=== PATIENT | female | born 1990 | race Caucasian/White ===

== ENCOUNTER 2018-07-27 20:51 | Emergency (ER) | END 2018-07-28 01:26 | disposition home or self-care (01) ==

== ENCOUNTER 2018-09-10 10:10 | Day surgery (SDC) | END 2018-09-10 18:13 | disposition home or self-care (01) ==

== ENCOUNTER 2018-11-30 16:15 | Inpatient (IN) | payer OTHER ==
[~2018-11-30] VITALS: Ht 167.6 cm; Wt 77.0 kg
[2018-11-30] MEDS ORDERED: ONDANSETRON (ODT) 4 MG TAB ODT STA (22:07)
--- NOTE | 2018-11-30 22:07 | ERD ---
ER Documentation Chief Complaint Chief Complaint EPIGASTRIC PAIN WITH VOMITING X1HR [employer]ILY [employer] [place] HPI This is a 28-year-old female presents emergency department with complaints of epigastric pain with vomiting and hour prior to arrival here to emergency department. Patient stated that her epigastric pain started around 3 PM after eating chicken at around 2 PM. Added that she had a cholecystectomy last September 2018. [facility]. LMP: Unknown. . Denies headache, head injury, loss of consciousness, dizziness, neck pain, neck stiffness, throat pain, difficulty swallowing, difficulty breathing lying flat, shoulder pain, chest pain, back pain,constipation, diarrhea, urinary symptoms, or possibility being , loss of bowel and bladder control, trauma, injury, falls, difficulty walking due to pain, numbness or tingling sensation, calf pain, recent travel, recent major surgery in the last 3 weeks, calf pain, recent long travel, recent exposure to any illness, recent antibiotic use in the last 3 months, fever, chills, seizures. Past medical history: Surgical history: Cholecystectomy last September 2018. Social: Denies smoking, use of alcoholic beverages, use of illegal drugs. ROS All systems reviewed and are negative except as per history of present illness. Medications Home Meds No Active Prescriptions or Reported Meds Allergies Allergies: Coded Allergies: Penicillins (Verified Allergy, Intermediate, RASH, N/V, DIZZINES, 09/10/18) PMhx/Soc History of Surgery: No Anesthesia Reaction: No Hx Neurological Disorder: No Hx Respiratory Disorders: No Hx Cardiac Disorders: No Hx Psychiatric Problems: No Hx Miscellaneous Medical Probl: No Hx Alcohol Use: Yes (SOCIALLY) Hx Substance Use: No Hx Tobacco Use: No Smoking Status: Current every day smoker Physical Exam Vitals Vital Signs Date Temp Pulse Resp B/P (MAP) Pulse Ox O2 O2 Flow FiO2 Time Delivery Rate 12/01/18 98.0 56 16 106/60 100 Room Air 02:37 (75) 11/30/18 98.4 72 20 136/65 99 16:19 (88) Physical Exam Const: No acute distress Head: Atraumatic Eyes: Normal Conjunctiva ENT: Normal External Ears, Nose and Mouth. Neck: Full range of motion. No meningismus. Resp: Clear to auscultation bilaterally Cardio: Regular rate and rhythm, no murmurs Abd: Soft, non tender, non distended. Normal bowel sounds. Has right upper abdominal tenderness to light and deep palpation. Negative Dago sign (heel jar test). Negative psoas sign. Negative Rovsing sign. No CVA tenderness. Lap sites are intact. No signs of dizziness. Skin: No petechiae or rashes Back: No midline or flank tenderness Ext: No cyanosis, or edema Neur: Awake and alert. No neurological deficit. Psych: Normal Mood and Affect Result Diagram: 11/30/18222111/30/182221 Results 24 hrs Laboratory Tests Test 11/30/18 22:22 11/30/18 22:47 White Blood Count 7.9 10^3/ul Red Blood Count 4.73 10^6/ul Hemoglobin 13.0 g/dl Hematocrit 41.2 % Mean Corpuscular Volume 87.1 fl Mean Corpuscular Hemoglobin 27.5 pg Mean Corpuscular Hemoglobin Concent 31.6 g/dl Red Cell Distribution Width 14.6 % Platelet Count 187 10^3/UL Mean Platelet Volume 10.1 fl Immature Granulocytes % 0.400 % Neutrophils % 69.4 % Lymphocytes % 21.0 % Monocytes % 8.6 % Eosinophils % 0.3 % Basophils % 0.3 % Nucleated Red Blood Cells % 0.0 /100WBC Immature Granulocytes # 0.030 10^3/ul Neutrophils # 5.5 10^3/ul Lymphocytes # 1.7 10^3/ul Monocytes # 0.7 10^3/ul Eosinophils # 0.0 10^3/ul Basophils # 0.0 10^3/ul Nucleated Red Blood Cells # 0.0 10^3/ul Urine Color NAA Urine Clarity CLOUDY Urine pH 5.0 Urine Specific [place] 1.027 Urine Ketones TRACE mg/dL Urine Nitrite NEGATIVE mg/dL Urine Bilirubin NEGATIVE mg/dL Urine Urobilinogen 2+ mg/dL Urine Leukocyte Esterase 2+ Holden/ul Urine Microscopic RBC 4 /HPF Urine Microscopic WBC 2 /HPF Urine Squamous Epithelial Cells FEW /HPF Urine Mucus FEW /HPF Urine Hemoglobin NEGATIVE mg/dL Urine Glucose NEGATIVE mg/dL Urine Total Protein NEGATIVE mg/dl Sodium Level 144 mmol/L Potassium Level 3.9 mmol/L Chloride Level 106 mmol/L Carbon Dioxide Level 27 mmol/L Anion Gap 11 Blood Urea Nitrogen 14 mg/dl Creatinine 0.57 mg/dl Est Glomerular Filtrat Rate mL/min > 60 mL/min Glucose Level 99 mg/dl Calcium Level 10.3 mg/dl Total Bilirubin 0.7 mg/dl Direct Bilirubin 0.00 mg/dl Indirect Bilirubin 0.7 mg/dl Aspartate Amino Transf (AST/SGOT) 604 IU/L Alanine Aminotransferase (ALT/SGPT) 326 IU/L Alkaline Phosphatase 154 IU/L Total Protein 8.4 g/dl Albumin 4.8 g/dl Globulin 3.60 g/dl Albumin/Globulin Ratio 1.33 Amylase Level 197 U/L Lipase 1233 U/L POC Beta HCG, Qualitative NEGATIVE Current Medications Medications Dose Sig/Osiris Start Time Status Last (Trade) Ordered Route PRN Stop Time Admin Dose Reason Admin Ondansetron 4 mg ONCE STAT 11/30/18 DC 12/01/18 HCl (Zofran ODT 22:07 00:20 Odt) 11/30/18 22:10 40 ml ONCE ONCE 11/30/18 DC 12/01/18 Miscellaneous PO 22:30 00:20 Medication 11/30/18 22:31 (Gi Cocktail (2)) Sodium 1,000 ml @ Q1H ONCE 12/01/18 DC 12/01/18 Chloride 1,000 mls/hr IV 01:00 01:07 12/01/18 01:59 Morphine 4 mg ONCE STAT 12/01/18 DC Sulfate IV 00:35 (morphine) 12/01/18 00:36 Ondansetron 4 mg ONCE STAT 12/01/18 DC 12/01/18 HCl (Zofran IV 00:35 01:10 Inj) 12/01/18 00:36 Ondansetron 4 mg BRIDGE ORDER 12/01/18 HCl (Zofran PRN IV 02:30 Inj) NAUSEA/VOMITI 12/02/18 02:29 NG 650 mg ER BRIDGE 12/01/18 Acetaminophen PRN PO 02:30 (Tylenol .MILD PAIN 12/02/18 02:29 Tab) 1-3 OR TEMP Sodium 1,000 ml @ Q5H IV 12/01/18 Chloride 200 mls/hr 02:16 IV Flush 3 ml PER 12/01/18 (NS 3 ml) PROTOCOL IV 02:30 Ondansetron 4 mg Q6H PRN 12/01/18 HCl (Zofran IV 02:30 Inj) NAUSEA/VOMITI NG 650 mg Q6H PRN 12/01/18 Acetaminophen PO .PAIN 1-3 02:30 (Tylenol OR TEMP Tab) 0.5 mg Q4H PRN 12/01/18 Hydromorphone IV .SEVERE 02:30 HCl PAIN 7-10 (Dilaudid) Docusate 100 mg Q12H PRN 12/01/18 Sodium PO 02:30 (Colace) .CONSTIPATION Bisacodyl 5 mg DAILY PRN 12/01/18 (Dulcolax) PO 02:30 .CONSTIPATION 200 ml @ Q12 IVPB 12/01/18 Ciprofloxacin 200 mls/hr 02:31 / Dextrose Procedures/MDM Diagnostic tests: POC urine : Negative. Urinalysis: UTI. Culture urine: Sent. Blood works: Elevated lipase. Elevated liver enzymes. Ultrasound of the gallbladder: IMPRESSION: 1. Surgically absent gallbladder. No evidence of common bile duct obstruction. 2. Sonographically unremarkable liver. 3. Sonographically unremarkable right kidney. Treatment: Zofran ODT. GI cocktail. Saline lock. Normal saline IV bolus. Morphine IV. Zofran IV. Ceftriaxone IV. Re-evaluation: Minimal pain. This case was discussed with my supervising physician, Dr. Bharat Nice who agreed to admit the patient and to continue care. Departure Diagnosis: Primary Impression: Abdominal pain Additional Impressions: Pancreatitis Elevated liver enzymes UTI (urinary tract infection) Condition: BOUBACAR Boyd Nov 30, 2018 22:07
[2018-11-30] MEDS ORDERED: LIDOCAINE/MYLANTA 40 ML BTL PO ONE (22:30)
[2018-12-01] MEDS ORDERED: morphine 4 MG/ML VIAL IV STA (00:35)
[2018-12-01] MEDS ORDERED: ONDANSETRON 4 MG INJ IV STA (00:35)
[2018-12-01] MEDS ORDERED: SOD CHLORIDE 0.9% 1,000 ML IV ONE (01:00)
--- NOTE | 2018-12-01 02:23 | QN ---
Documentation Comment Consultation note Subjective: The patient was evaluated by the PA under my direct supervision. Briefly, this is a 28-year-old female with reported occasional alcohol use who is presenting with epigastric pain, nausea and vomiting. Family history: As indicated on the initial history and physical of this ER visit Objective: Vital signs reviewed Const: No apparent distress, well-developed, well-nourished Head: Normocephalic, Atraumatic Eyes: Normal Conjunctiva. ENT: Normal External Ears, Nose and Mouth. Neck: No meningismus. Resp: Symmetric chest wall urena, no audible wheezes Cardio: Regular rate Abd: Non distended Skin: No petechiae or rashes Back: Deferred Ext: No cyanosis, or edema Neur: Awake and alert. No facial droop. Normal strength and sensation. Assessment: Pancreatitis MDM The patient's presentation warrants further investigation. Previous medical records, if available, were reviewed. LABS The patient's laboratory testing was obtained and reviewed. No emergent treatment was required unless described below. CBC: No E/o of systemic infection or severe anemia or thrombocytopenia CMP: No E/o severe acidosis or alkalosis or renal failure or diabetic ketoacidosis. Transaminitis in a pattern of alcohol abuse. Lipase: E/o pancreatitis Urine: No E/o acute infection or hematuria IMAGING Imaging and Radiology interpretation reviewed. Ultrasound abdomen IMPRESSION: 1. Surgically absent gallbladder. No evidence of common bile duct obstruction. 2. Sonographically unremarkable liver. 3. Sonographically unremarkable right kidney. Electronically viewed and signed by Physician Matthew on 11/30/2018 23:42 TREATMENT/DISPOSITION The patient's evaluation is consistent with pancreatitis, which appears to be related to alcohol abuse. The patient was given IV fluids, morphine and Zofran with some improvement of her symptoms. At this time, I feel that the patient requires admission for further evaluation and management. The patient will be admitted to panel in accordance with the patient's insurance. The patient was accepted by Dr. Hernandez at 0220 at 12/01/2018. Disclaimer: Inadvertent spelling and grammatical errors are likely due to EHR/dictation software use and do not reflect on the overall quality of patient care. Note that the electronic time recorded on this note does not necessarily reflect the actual time of the patient encounter. ANGELA RO MD Dec 01, 2018 02:23
[2018-12-01] MEDS ORDERED: NACL 0.9% 3 ML SYG IV SCH (02:30)
[2018-12-01] MEDS ORDERED: BISACODYL (EC) 5 MG TAB PO PRN (02:30)
[2018-12-01] MEDS ORDERED: ACETAMINOPHEN 325 MG TAB PO PRN (02:30)
[2018-12-01] MEDS ORDERED: DOCUSATE SODIUM 100 MG CAP PO PRN (02:30)
[2018-12-01] MEDS ORDERED: HYDROmorphONE 0.5 MG/0.5 ML SYG IV PRN (02:30)
[2018-12-01] MEDS ORDERED: ONDANSETRON 4 MG INJ IV PRN ×2 (02:30)
[2018-12-01 02:49] VITALS: BP 103/57; PULSE 59; RESP 18
[2018-12-01 03:10] VITALS: Ht 167.6 cm; Wt 77.0 kg
[2018-12-01] MEDS: ACETAMINOPHEN 325 MG TAB PO PRN ×2 (03:30→21:12)
[2018-12-01] MEDS: SOD CHLORIDE 0.9% 1,000 ML IV SCH ×5 (03:31→18:51)
[2018-12-01] MEDS: CIPROFLOXACIN 400MG/D5W 200 ML IVPB SCH ×3 (03:35→21:10)
--- NOTE | 2018-12-01 07:13 | HP ---
Date/Time of Note Date/Time of Note DATE: 12/01/18 TIME: 07:07 Assessment/Plan VTE Prophylaxis SCD applied (from Nsg): Yes Pharmacological prophylaxis: NA/contraindicated Pharm contraindication: low risk/ambulating Lines/Catheters IV Catheter Type (from Nrsg): Peripheral IV Urinary Cath still in place: No Assessment/Plan Hospital Course This is a 28-year-old female being admitted to the [facility] floor for: #1 acute pancreatitis: Possibly secondary to EtOH use. Patient did have her gallbladder removed in September 2018. Right upper quadrant ultrasound does not show any signs of common bile duct elevation. Patient does have elevated LFTs but without any obstructive pattern. At the current time will provide aggressive IV fluid hydration with normal saline. Pain control. #2 transaminitis: Patient does have a 2-1 AST to ALT ratio likely consistent with alcohol use. We will also check an acetaminophen level. Will check hepatitis panel. Continue to monitor closely. Will limit acetaminophen intake to 2 g daily. #3 urinary tract infection: Await urine culture results, Cipro IV at the current time. #4 DVT GI prophylaxis: SCDs, no GI prophylaxis indicated Further treatment strategy will be implemented as per the clinical course. Result Diagram: 12/01/18 0510 11/30/18 2222 Results 24hrs Laboratory Tests Test 11/30/18 22:22 11/30/18 22:47 12/01/18 05:10 White Blood Count 7.9 4.4 #L Red Blood Count 4.73 3.98 L Hemoglobin 13.0 11.1 L Hematocrit 41.2 35.1 L Mean Corpuscular Volume 87.1 88.2 Mean Corpuscular Hemoglobin 27.5 L 27.9 L Mean Corpuscular Hemoglobin Concent 31.6 L 31.6 L Red Cell Distribution Width 14.6 H 14.7 H Platelet Count 187 144 # Mean Platelet Volume 10.1 11.2 H Immature Granulocytes % 0.400 0.200 Neutrophils % 69.4 58.2 Lymphocytes % 21.0 28.2 Monocytes % 8.6 12.1 H Eosinophils % 0.3 1.1 Basophils % 0.3 0.2 Nucleated Red Blood Cells % 0.0 0.0 Immature Granulocytes # 0.030 0.010 Neutrophils # 5.5 2.6 Lymphocytes # 1.7 1.2 Monocytes # 0.7 0.5 Eosinophils # 0.0 0.1 Basophils # 0.0 0.0 Nucleated Red Blood Cells # 0.0 0.0 Urine Color ANA Urine Clarity CLOUDY A Urine pH 5.0 Urine Specific [place] 1.027 Urine Ketones TRACE A Urine Nitrite NEGATIVE Urine Bilirubin NEGATIVE Urine Urobilinogen 2+ H Urine Leukocyte Esterase 2+ H Urine Microscopic RBC 4 Urine Microscopic WBC 2 Urine Squamous Epithelial Cells FEW Urine Mucus FEW A Urine Hemoglobin NEGATIVE Urine Glucose NEGATIVE Urine Total Protein NEGATIVE Sodium Level 144 Potassium Level 3.9 Chloride Level 106 Carbon Dioxide Level 27 Anion Gap 11 Blood Urea Nitrogen 14 Creatinine 0.57 Est Glomerular Filtrat Rate mL/min > 60 Glucose Level 99 Calcium Level 10.3 H Total Bilirubin 0.7 Direct Bilirubin 0.00 Indirect Bilirubin 0.7 Aspartate Amino Transf (AST/SGOT) 604 H Alanine Aminotransferase (ALT/SGPT) 326 H Alkaline Phosphatase 154 H Total Protein 8.4 H Albumin 4.8 Globulin 3.60 H Albumin/Globulin Ratio 1.33 Amylase Level 197 H Lipase 1233 H POC Beta HCG, Qualitative NEGATIVE HPI/ROS Admit Date/Time Admit Date/Time Dec 01, 2018 at 02:18 Hx of Present Illness Chief complaint: Abdominal pain and vomiting times 1 day This is a 28-year-old female who presented to the emergency department complaining of epigastric pain with vomiting approximately 1 hour prior to arrival. Patient reports that the epigastric pain started approximately 3 PM after she had eaten food at approximately 2 PM. She did go to a friend's alliance party recently and did have a lot to drink there as well. She had a cholecystectomy performed in September 2018. She also does report episodes of diarrhea as well. Denies any fevers. Allergies: Penicillin Medications: None ROS Const: As per HPI Eyes : No pain discharge or redness or change in visual acuity ENT: No pain, sore throat, congestion, congestion, dysphagia or discharge Respiratory: No shortness of breath, cough, sputum, wheezing, or pleuritic pain Cardiovascular: No chest pain, palpitation, PND, or edema GI : As per HPI Genitourinary: No dysuria, hematuria, flank pain , discharge or CVA tenderness Musculoskeletal: No joint pain, back pain, neck pain, restricted range of motion in neck or joints Skin: No rash, bruising or hives Neuro: No headache, dizziness, syncope, seizure, focal weakness Endocrine: No polyuria, polydipsia, temperature intolerance Psych: No hallucination, depression, anxiety or suicidal ideation PMH/Family/Social Past Medical History Medical History: no pertinent history Medications Current Medications Ondansetron HCl (Zofran Inj) 4 mg BRIDGE ORDER PRN IV NAUSEA/VOMITING; Start 12/01/18 at 02:30; Stop 12/02/18 at 02:29 Acetaminophen (Tylenol Tab) 650 mg ER BRIDGE PRN PO .MILD PAIN 1-3 OR TEMP; Start 12/01/18 at 02:30; Stop 12/02/18 at 02:29 Sodium Chloride 1,000 ml @ 200 mls/hr Q5H IV Last administered on 12/01/18at 03:31; Admin Dose 200 MLS/HR; Start 12/01/18 at 02:16 IV Flush (NS 3 ml) 3 ml PER PROTOCOL IV ; Start 12/01/18 at 02:30 Ondansetron HCl (Zofran Inj) 4 mg Q6H PRN IV NAUSEA/VOMITING Last administered on 12/01/18at 03:33; Admin Dose 4 MG; Start 12/01/18 at 02:30 Acetaminophen (Tylenol Tab) 650 mg Q6H PRN PO .PAIN 1-3 OR TEMP Last administered on 12/01/18at 03:30; Admin Dose 650 MG; Start 12/01/18 at 02:30 Hydromorphone HCl (Dilaudid) 0.5 mg Q4H PRN IV .SEVERE PAIN 7-10; Start 12/01/18 at 02:30 Docusate Sodium (Colace) 100 mg Q12H PRN PO .CONSTIPATION; Start 12/01/18 at 02:30 Bisacodyl (Dulcolax) 5 mg DAILY PRN PO .CONSTIPATION; Start 12/01/18 at 02:30 Ciprofloxacin/ Dextrose 200 ml @ 200 mls/hr Q12 IVPB Last administered on 12/01/18at 03:35; Admin Dose 200 MLS/HR; Start 12/01/18 at 02:31 Coded Allergies: Penicillins (Verified Allergy, Intermediate, RASH, N/V, DIZZINES, 09/10/18) Past Surgical History Cholecystectomy in September 2018 Family History Significant Family History: no pertinent family hx Social History Recent episode of heavy drinking at a alliance party Alcohol Use: occasionally Smoking Status: Never smoker Drug Use: none Exam/Review of Systems Vital Signs Vitals Vital Signs Date Temp Pulse Resp B/P (MAP) Pulse Ox O2 O2 Flow FiO2 Time Delivery Rate 12/01/18 97.9 59 18 103/57 100 02:49 (72) 12/01/18 Room Air 02:37 Intake and Output 11/30/18 11/30/18 12/01/18 1515:00 23:00 07:00 IntakeIntake Total 620 ml BalanceBalance 620 ml Exam Exam General: Patient is a pleasant female currently lying in bed in mild distress from epigastric pain HEENT: Atraumatic, normocephalic. The pupils are equal, round and reactive. Extraocular motor are intact Neck: Supple with full range of motion. No rigidity or meningismus Chest: Nontender Lungs: Clear to auscultation bilaterally no crackles rales or wheezing Heart: Normal S1-S2, Regular rhythm and rate. No murmur, S3, or S4 Abdomen: Soft , tender to palpation at the epigastric region nondistended , bowel sounds are present. No guarding no rebound tenderness , No masses or organomegaly. No costovertebral temporal angle mass Extremities: Normal to inspection, no edema no cyanosis Neurologic: Normal mental status, speech normal, cranial nerves II through XII are intact, motor and sensory are intact, no focal weakness Additional Comments PROCEDURE: US gallbladder . CLINICAL INDICATION: Postprandial upper abdominal pain TECHNIQUE: Multiple real-time images were acquired of the patient's abdomen utilizing a high resolution transducer. COMPARISON: 07/27/2018 FINDINGS: The hepatic parenchyma is unremarkable where visualized. Size is normal. No abnormal focal masses or fluid collections are identified. The gallbladder is surgically absent having been removed subsequent to the previous ultrasound. The common bile duct measures 4 mm in maximal dimension. The pancreas, where visible, appears unremarkable. Were visible, the right kidney appears unremarkable and measures 11.1 cm in length. No free fluid is identified. The abdominal aorta and inferior vena cava appear unremarkable. IMPRESSION: 1. Surgically absent gallbladder. No evidence of common bile duct obstruction. 2. Sonographically unremarkable liver. 3. Sonographically unremarkable right kidney. RPTAT:AAJJ Garyly Alexsander, Physician Date Time Electronically viewed and signed by Paul Beltre, Physician on 11/30/2018 23:42 GW/ CC: BOUBACAR EDWARDS [id number] RIMA REYES Dec 01, 2018 07:13
[2018-12-01 08:44] VITALS: BP 120/66; PULSE 57; RESP 16
[2018-12-01 13:42] VITALS: BP 109/59; PULSE 63; RESP 18
--- NOTE | 2018-12-01 16:54 | PN ---
Date/Time of Note Date/Time of Note DATE: 12/01/18 TIME: 16:53 Assessment/Plan VTE Prophylaxis Risk score (from Ns)>0 risk: 1 SCD applied (from Ns): Yes Pharmacological prophylaxis: NA/contraindicated Pharm contraindication: low risk/ambulating Lines/Catheters IV Catheter Type (from [facility]): Peripheral IV Urinary Cath still in place: No Assessment/Plan Hospital Course SUBJECTIVE: Denies any abdominal pain. OBJECTIVE: Physical Exam General: Adequately build 28 year-old female lying in bed in no apparent distress. HEENT: Normocephalic, atraumatic. Eyes: Anicteric sclerae, conjunctivae clear. ENT: Nasal septum midline, oral mucosa moist. Neck supple, no JVD noticed. Respiratory: Bilaterally clear breath sounds. No use of accessory muscles of respiration. No adventitious breath sounds. Cardiovascular: S1, S2 heard. No murmurs or gallops. Abdomen: Soft, nontender, and nondistended. Bowel sounds positive in all 4 quadrants. Genitourinary: Deferred. Extremities: No cyanosis, no clubbing, no edema. Peripheral pulses palpable. Neurologic: Cranial nerves II through XII grossly intact. The patient is awake, alert, and oriented. Skin: Normal skin turgor. No skin rashes. Labs & Vitals per chart ASSESSMENT & PLAN 28-year-old female with past medical history of cholelithiasis status post cholecystectomy who came to the emergency room with chief complaint of abdominal pain and vomiting times 1 day. The patient has been recently drinking alcohol at a constitution party. In the emergency room, the patient was noticed to have evidence of pancreatitis with a lipase level of 1233. The patient's gallbladder ultrasound showed no evidence of common bile duct obstruction and surgically absent gallbladder. The patient was admitted to inpatient setting for further treatment and evaluation. 1. Acute pancreatitis -Most probably alcohol induced -Patient is status post cholecystectomy. The patient's MRCP negative for any choledocholithiasis -No evidence of any hypertriglyceridemia on fasting lipid panel. -Continue n.p.o. -Continue pain control. -Continue IV fluids. 2. Positive urinalysis -On empiric antimicrobials for any underlying urinary tract infection. -Await final cultures. 3. Alcohol use. -Cessation advised. -The patient relates that she is not a heavy alcohol user and was willing to remain sober. 4. Transaminitis with hyperbilirubinemia. -Most probably secondary to #1. 5. Fluids, electrolytes, and nutrition. -N.p.o. except for medications -IV fluids. 6. DVT prophylaxis. -Bilateral SCDs. 7. Plan. -Continue pain control. -Continue IV hydration. -Trend pancreatic enzyme levels. The patient was seen in collaboration with Dr. Ceja. Result Diagram: 12/01/18 0510 12/01/18 0510 Results 24hrs Laboratory Tests Test 11/30/18 22:22 11/30/18 22:47 12/01/18 05:10 12/01/18 07:33 White Blood Count 7.9 4.4 #L Red Blood Count 4.73 3.98 L Hemoglobin 13.0 11.1 L Hematocrit 41.2 35.1 L Mean Corpuscular 87.1 88.2 Volume Mean Corpuscular 27.5 L 27.9 L Hemoglobin Mean Corpuscular 31.6 L 31.6 L Hemoglobin Concent Red Cell 14.6 H 14.7 H Distribution Width Platelet Count 187 144 # Mean Platelet Volume 10.1 11.2 H Immature 0.400 0.200 Granulocytes % Neutrophils % 69.4 58.2 Lymphocytes % 21.0 28.2 Monocytes % 8.6 12.1 H Eosinophils % 0.3 1.1 Basophils % 0.3 0.2 Nucleated Red Blood 0.0 0.0 Cells % Immature 0.030 0.010 Granulocytes # Neutrophils # 5.5 2.6 Lymphocytes # 1.7 1.2 Monocytes # 0.7 0.5 Eosinophils # 0.0 0.1 Basophils # 0.0 0.0 Nucleated Red Blood 0.0 0.0 Cells # Urine Color ANA Urine Clarity CLOUDY A Urine pH 5.0 Urine Specific 1.027 Gray Urine Ketones TRACE A Urine Nitrite NEGATIVE Urine Bilirubin NEGATIVE Urine Urobilinogen 2+ H Urine Leukocyte 2+ H Esterase Urine Microscopic 4 RBC Urine Microscopic 2 WBC Urine Squamous FEW Epithelial Cells Urine Mucus FEW A Urine Hemoglobin NEGATIVE Urine Glucose NEGATIVE Urine Total Protein NEGATIVE Sodium Level 144 140 Potassium Level 3.9 4.0 Chloride Level 106 108 Carbon Dioxide Level 27 27 Anion Gap 11 5 Blood Urea Nitrogen 14 12 Creatinine 0.57 0.58 Est Glomerular > 60 > 60 Filtrat Rate mL/min Glucose Level 99 105 Calcium Level 10.3 H 9.1 Total Bilirubin 0.7 0.7 Direct Bilirubin 0.00 0.00 Indirect Bilirubin 0.7 0.7 Aspartate Amino 604 H 563 H Transf (AST/SGOT) Alanine 326 H 458 H Aminotransferase (AL T/SGPT) Alkaline Phosphatase 154 H 108 Total Protein 8.4 H 6.6 # Albumin 4.8 3.7 # Globulin 3.60 H 2.90 Albumin/Globulin 1.33 1.27 Ratio Amylase Level 197 H Lipase 1233 H POC Beta HCG, NEGATIVE Qualitative Hemoglobin A1c 5.1 Magnesium Level 2.1 Triglycerides Level 23 Cholesterol Level 122 LDL Cholesterol, 76 Calculated HDL Cholesterol 41 Cholesterol/HDL 2.9 Ratio Thyroid Stimulating 0.985 Hormone (TSH) Acetaminophen Level < 10.0 L Ethyl Alcohol Level < 10.0 H Hepatitis A Antibody POSITIVE H Total Hepatitis B Surface NEGATIVE Antigen Hepatitis B Surface POSITIVE H Antibody Hepatitis B Core NEGATIVE Total Antibody Hepatitis C Antibody NEGATIVE Exam/Review of Systems Exam Vitals Vital Signs Date Temp Pulse Resp B/P (MAP) Pulse Ox O2 O2 Flow FiO2 Time Delivery Rate 12/01/18 98.6 63 18 109/59 98 Room Air 13:42 (76) Intake and Output 11/30/18 11/30/18 12/01/18 1515:00 23:00 07:00 IntakeIntake Total 620 ml BalanceBalance 620 ml Results Results 24hrs Laboratory Tests Test 11/30/18 22:22 11/30/18 22:47 12/01/18 05:10 12/01/18 07:33 White Blood Count 7.9 4.4 #L Red Blood Count 4.73 3.98 L Hemoglobin 13.0 11.1 L Hematocrit 41.2 35.1 L Mean Corpuscular 87.1 88.2 Volume Mean Corpuscular 27.5 L 27.9 L Hemoglobin Mean Corpuscular 31.6 L 31.6 L Hemoglobin Concent Red Cell 14.6 H 14.7 H Distribution Width Platelet Count 187 144 # Mean Platelet Volume 10.1 11.2 H Immature 0.400 0.200 Granulocytes % Neutrophils % 69.4 58.2 Lymphocytes % 21.0 28.2 Monocytes % 8.6 12.1 H Eosinophils % 0.3 1.1 Basophils % 0.3 0.2 Nucleated Red Blood 0.0 0.0 Cells % Immature 0.030 0.010 Granulocytes # Neutrophils # 5.5 2.6 Lymphocytes # 1.7 1.2 Monocytes # 0.7 0.5 Eosinophils # 0.0 0.1 Basophils # 0.0 0.0 Nucleated Red Blood 0.0 0.0 Cells # Urine Color ANA Urine Clarity CLOUDY A Urine pH 5.0 Urine Specific 1.027 Gray Urine Ketones TRACE A Urine Nitrite NEGATIVE Urine Bilirubin NEGATIVE Urine Urobilinogen 2+ H Urine Leukocyte 2+ H Esterase Urine Microscopic 4 RBC Urine Microscopic 2 WBC Urine Squamous FEW Epithelial Cells Urine Mucus FEW A Urine Hemoglobin NEGATIVE Urine Glucose NEGATIVE Urine Total Protein NEGATIVE Sodium Level 144 140 Potassium Level 3.9 4.0 Chloride Level 106 108 Carbon Dioxide Level 27 27 Anion Gap 11 5 Blood Urea Nitrogen 14 12 Creatinine 0.57 0.58 Est Glomerular > 60 > 60 Filtrat Rate mL/min Glucose Level 99 105 Calcium Level 10.3 H 9.1 Total Bilirubin 0.7 0.7 Direct Bilirubin 0.00 0.00 Indirect Bilirubin 0.7 0.7 Aspartate Amino 604 H 563 H Transf (AST/SGOT) Alanine 326 H 458 H Aminotransferase (AL T/SGPT) Alkaline Phosphatase 154 H 108 Total Protein 8.4 H 6.6 # Albumin 4.8 3.7 # Globulin 3.60 H 2.90 Albumin/Globulin 1.33 1.27 Ratio Amylase Level 197 H Lipase 1233 H POC Beta HCG, NEGATIVE Qualitative Hemoglobin A1c 5.1 Magnesium Level 2.1 Triglycerides Level 23 Cholesterol Level 122 LDL Cholesterol, 76 Calculated HDL Cholesterol 41 Cholesterol/HDL 2.9 Ratio Thyroid Stimulating 0.985 Hormone (TSH) Acetaminophen Level < 10.0 L Ethyl Alcohol Level < 10.0 H Hepatitis A Antibody POSITIVE H Total Hepatitis B Surface NEGATIVE Antigen Hepatitis B Surface POSITIVE H Antibody Hepatitis B Core NEGATIVE Total Antibody Hepatitis C Antibody NEGATIVE Medications Medication Current Medications Ondansetron HCl (Zofran Inj) 4 mg BRIDGE ORDER PRN IV NAUSEA/VOMITING; Start 12/01/18 at 02:30; Stop 12/02/18 at 02:29 Acetaminophen (Tylenol Tab) 650 mg ER BRIDGE PRN PO .MILD PAIN 1-3 OR TEMP; Start 12/01/18 at 02:30; Stop 12/02/18 at 02:29 Sodium Chloride 1,000 ml @ 200 mls/hr Q5H IV Last administered on 12/01/18at 09:14; Admin Dose 200 MLS/HR; Start 12/01/18 at 02:16 IV Flush (NS 3 ml) 3 ml PER PROTOCOL IV ; Start 12/01/18 at 02:30 Ondansetron HCl (Zofran Inj) 4 mg Q6H PRN IV NAUSEA/VOMITING Last administered on 12/01/18at 03:33; Admin Dose 4 MG; Start 12/01/18 at 02:30 Acetaminophen (Tylenol Tab) 650 mg Q6H PRN PO .PAIN 1-3 OR TEMP Last administered on 12/01/18at 03:30; Admin Dose 650 MG; Start 12/01/18 at 02:30 Hydromorphone HCl (Dilaudid) 0.5 mg Q4H PRN IV .SEVERE PAIN 7-10; Start 12/01/18 at 02:30 Docusate Sodium (Colace) 100 mg Q12H PRN PO .CONSTIPATION; Start 12/01/18 at 02:30 Bisacodyl (Dulcolax) 5 mg DAILY PRN PO .CONSTIPATION; Start 12/01/18 at 02:30 Ciprofloxacin/ Dextrose 200 ml @ 200 mls/hr Q12 IVPB Last administered on 12/01/18at 12:37; Admin Dose 200 MLS/HR; Start 12/01/18 at 02:31 Miscellaneous Information (* Miscellaneous Pharmacy Order) 12/01/18:PER DR REYES'S ORD... DIRECTED XX ; Start 12/01/18 at 08:00 SAMI HARRY NP Dec 01, 2018 16:54
[2018-12-01 20:00] VITALS: BP 111/57; PULSE 60; RESP 18
[2018-12-02] MEDS: SOD CHLORIDE 0.9% 1,000 ML IV SCH ×4 (00:12→17:19)
[2018-12-02 02:04] VITALS: BP 101/57; PULSE 71; RESP 16
[2018-12-02 08:19] VITALS: BP 119/57; PULSE 69; RESP 17
[2018-12-02] MEDS: CIPROFLOXACIN 400MG/D5W 200 ML IVPB SCH (08:30)
--- NOTE | 2018-12-02 08:39 | DS ---
Date/Time of Note Date/Time of Note DATE: 12/02/18 TIME: 08:37 Discharge Summary Admission/Discharge Info Admit Date/Time Dec 01, 2018 at 02:18 Discharge Date/Time Discharge Diagnosis 1. Acute pancreatitis 2. Alcohol use. 3. Transaminitis without hyperbilirubinemia. Patient Condition: Stable Procedures MRCP IMPRESSION: The gallbladder is removed. There is no biliary ductal dilatation or evidence of choledocholithiasis on MRCP. No acute process in the abdomen. Gallbladder US IMPRESSION: 1. Surgically absent gallbladder. No evidence of common bile duct obstruction. 2. Sonographically unremarkable liver. 3. Sonographically unremarkable right kidney. Hx of Present Illness This is a 28-year-old female with past medical history of cholelithiasis status post cholecystectomy who came to the emergency room with chief complaint of abdominal pain and vomiting times 1 day. The patient has been recently drinking alcohol at a green party. In the emergency room, the patient was noticed to have evidence of pancreatitis with a lipase level of 1233. The patient's gallbladder ultrasound showed no evidence of common bile duct obstruction and surgically absent gallbladder. The patient was admitted to inpatient setting for further treatment and evaluation. Hospital Course The patient was admitted to inpatient setting. The patient was kept n.p.o. The patient was started on IV fluids. The patient was provided with adequate pain control. The patient's acute pancreatitis could-have been most probably secondary to underlying alcohol use. The patient denied any chronic use of alcohol. The patient's serum alcohol level was less than 10. The patient is status post cholecystectomy. The patient underwent a MRCP to evaluate for any underlying choledocholithiasis and this was negative. The patient's trig lyceride levels were within normal limits. The patient responded well to the treatment strategy. Once the patient's pancreatic enzymes were normalized, she was started on a liquid diet and the diet was advanced as tolerated to a solid diet without any significant gastrointestinal symptoms. Therefore, the patient will be discharged home. The patient had underlying transaminitis without hyperbilirubinemia. The patient's hepatitis B surface antibody was positive but surface antigen was negative. The patient's hepatitis A antibody was positive and hepatitis A IgM is pending at this time. The patient was also empirically started on antimicrobials for positive urinalysis. Her urine cultures were inconclusive. Nevertheless, the patient remained afebrile and did not have any leukocytosis. Therefore, the patient's antimicrobials will be discontinued upon discharge. The patient had a stable hospital course. The patient is stable to be discharged home to be followed up with outpatient multifold operator for repeat liver function tests including pancreatic enzymes. Discharge Instructions 1. Resume regular diet. 2. Resume activities as tolerated. 3. Abstain from using alcohol. 4. Follow-up with your primary care physician in 1 week and check your liver function test including pancreatic enzymes. If you do not have a primary care physician, please call Dr. Augustine Kirkpatrick's office. 5. Please go to the nearest emergency room if you have any significant abdominal pain, persistent nausea/vomiting, jaundice, or any other unusual signs/symptoms. The patient verbalized understanding of her discharge instructions The patient was seen in collaboration with Dr. Ceja. Home Meds No Active Prescriptions or Reported Meds Follow-up Plan The patient to follow-up with her primary care physician 1 week. Primary Care Provider Not On Staff Doctor Time spent on discharge: > 30 minutes Pending Labs Laboratory Tests Test 12/02/18 05:21 12/02/18 05:22 Sodium Level 140 mmol/L (135-144) Potassium Level 4.0 mmol/L (3.5-5.1) Chloride Level 109 mmol/L (97-110) Carbon Dioxide Level 21 mmol/L (21-31) Anion Gap 10 (5-13) Blood Urea Nitrogen 9 mg/dl (7-20) Creatinine 0.59 mg/dl (0.44-1.00) Est Glomerular Filtrat > 60 mL/min (>60) Rate mL/min Glucose Level 69 mg/dl (70-220) Calcium Level 8.9 mg/dl (8.4-10.2) Total Bilirubin 0.6 mg/dl (0.2-1.3) Direct Bilirubin 0.00 mg/dl (0.00-0.20) Indirect Bilirubin 0.6 mg/dl (0-1.1) Aspartate Amino 110 IU/L (15-46) Transf (AST/SGOT) Alanine 314 IU/L (13-69) Aminotransferase (ALT/SGPT) Alkaline Phosphatase 104 IU/L (42-121) Total Protein 6.3 g/dl (6.1-8.1) Albumin 3.4 g/dl (3.3-4.9) Globulin 2.90 g/dl (1.3-3.2) Albumin/Globulin Ratio 1.17 Amylase Level 72 U/L (11-123) Lipase 159 U/L (23-300) White Blood Count 3.8 10^3/ul (4.8-10.8) Red Blood Count 3.90 10^6/ul (4.20-5.40) Hemoglobin 10.9 g/dl (12.0-16.0) Hematocrit 34.6 % (37.0-47.0) Mean Corpuscular Volume 88.7 fl (82.0-101.0) Mean Corpuscular Hemoglobin 27.9 pg (29.0-33.0) Mean Corpuscular 31.5 g/dl (32.0-37.0) Hemoglobin Concent Red Cell Distribution Width 14.6 % (11.5-14.5) Platelet Count 142 10^3/UL (140-415) Mean Platelet Volume 10.7 fl (7.4-10.4) Immature Granulocytes % 0.300 % (0.001-0.429) Neutrophils % 46.3 % (39.0-77.0) Lymphocytes % 40.9 % (15.0-51.0) Monocytes % 8.9 % (0.0-11.0) Eosinophils % 3.1 % (0.0-7.0) Basophils % 0.5 % (0.0-2.0) Nucleated Red Blood Cells % 0.0 /100WBC (0.0-0.0) Immature Granulocytes # 0.010 10^3/ul (0.0-0.031) Neutrophils # 1.8 10^3/ul (1.6-7.5) Lymphocytes # 1.6 10^3/ul (0.8-2.9) Monocytes # 0.3 10^3/ul (0.3-0.9) Eosinophils # 0.1 10^3/ul (0.0-0.5) Basophils # 0.0 10^3/ul (0.0-0.1) Nucleated Red Blood Cells # 0.0 10^3/ul (0.0-0.0) Phosphorus Level 4.0 mg/dl (2.5-4.9) Magnesium Level 2.0 mg/dl (1.7-2.5) SAMI HARRY NP Dec 02, 2018 08:39
--- NOTE | 2018-12-02 08:41 | PDOCDIS ---
Discharge Instructions DIAGNOSIS Discharge Diagnosis 1. Acute pancreatitis CONDITION [id number] Patient Condition: [id number] Stable HOME CARE INSTRUCTIONS: [id number] Diet Instructions: [id number] Regular FOLLOW UP/APPOINTMENTS Follow-up Plan Augustine Kirkpatrick MD Specialty: Internal Medicine Office Address: [address] [place], [place] [id number] Office OTHER ORDERS: Other Orders: 1. Resume regular diet. 2. Resume activities as tolerated. 3. Abstain from using alcohol. 4. Follow-up with your primary care physician in 1 week and check your liver function test including pancreatic enzymes. If you do not have a primary care physician, please call Dr. Augustine Kirkpatrick's office. 5. Please go to the nearest emergency room if you have any significant abdominal pain, persistent nausea/vomiting, jaundice, or any other unusual signs/symptoms. SAMI HARRY NP Dec 02, 2018 08:41
[2018-12-02 14:00] VITALS: BP 114/58; PULSE 79; RESP 17
== END 2018-12-02 18:25 | disposition home or self-care (01) | DRG 439 ==
LOC: FTE 16:15 → PP2 12-01 02:18
PROVIDERS: ADMIT Family Medicine; ATTEND Family Medicine
DX: K85.90 Acute pancreatitis without necrosis or infection, unspecified (principal); N39.0 Urinary tract infection, site not specified; Z72.89 Other problems related to lifestyle
CPT/HCPCS: 74181; 76705; 80053; 80061; 80307; 81001; 81025; 82150; 83036; 83690; 83735; 84100; 84443; 85025; 86704; 86706; 86708; 86709; 86803; 87086; 87340; 96361; 96374; J0744; J2405; J7030